=== PATIENT | male | born 1965 | race Two or more races ===

== ENCOUNTER 2016-11-18 18:18 | Emergency (ER) | payer OTHER ==
[2016-11-18 19:09] LABS: ABSOLUTE NEUTROPHIL COUNT 2.5 K/mm3 (1.8-7.7); BASO # 0.1 K/mm3 (0.0-0.2); BASO % 0.8 % (0.2-1.0); EOS # 0.2 (0.0-0.5); EOS % 2.7 % (0.9-2.9); HEMATOCRIT 44.6 % (32.0-52.0); HEMOGLOBIN 15.5 gm/l (14.0-18.0); IMM NEUT% 0.5 % (0-1); LYMPH # 3.1 (1.0-4.8); LYMPH % 48.6 % (15-45); MEAN CELL VOLUME 86.8 fl (80.0-94.0); MEAN CORPUSCULAR HEMOGLOBIN 30.2 pg (27.0-31.0); MEAN CORPUSCULAR HGB CONC 34.8 g/dl (33.0-37.0); MEAN PLATELET VOLUME 12.4 fl (7.4-10.4); MONO # 0.5 (0.0-0.8); MONO % 7.2 % (4-12); NEUT % 40.2 % (43-75); PLATELET COUNT 127 K/mm3 (130-400); RED CELL DISTRIBUTION WIDTH 12.4 % (11.5-14.5)
[2016-11-18 19:29] LABS: ALB/GLOB RATIO 1.4 (>1.0); ALBUMIN 4.3 gm/dL (3.5-5.7); CALCIUM 9.1 mg/dL (8.6-10.3)
--- NOTE | 2016-11-19 11:25 | US ---
ABDOMINAL-LIMITED COMPARISON: None HISTORY: Right upper quadrant pain. FINDINGS: Gall bladder: Contracted. No stones or sludge. Common hepatic duct: 3.1 mm. Common bile duct: 4.3 mm. IMPRESSION: 1. Contracted gallbladder because of recent meal. No gallstones or acute cholecystitis. No dilation of the bile ducts. Preliminary report by [facility] radiologist El Escudero MD 11/18/2016 at 21:04
== END 2016-11-18 18:19 | disposition home or self-care (01) ==
LOC: ED 18:18
DX: R10.9 Unspecified abdominal pain (principal); E11.9 Type 2 diabetes mellitus without complications; Z79.84 Long term (current) use of oral hypoglycemic drugs

== ENCOUNTER 2016-12-20 08:57 | Day surgery (SDC) | payer OTHER ==
[~2016-12-20 08:57] MED LIST: FENTANYL 250 MCG/5 ML AMP IV PRN; IV START KIT ONE; LACTATED RINGERS 0 ML ONE; LACTATED RINGERS 1,000 ML IV SCH; LIDOCAINE Viscous 2% 15 ML UDCUP PO PRN; MIDAZOLAM HCL 5 MG/5 ML VIAL IV PRN
[2016-12-20] MEDS ORDERED: SODIUM CHLORIDE 0.9% 1,000 ML ONE (09:10)
[2016-12-20] MEDS ORDERED: MIDAZOLAM HCL 5 MG/5 ML VIAL ONE (09:30)
[2016-12-20] MEDS ORDERED: LIDOCAINE Viscous 2% 15 ML UDCUP ONE (09:30)
[2016-12-20] MEDS ORDERED: FENTANYL 250 MCG/5 ML AMP ONE (09:30)
[2016-12-20] MEDS ORDERED: SODIUM CHLORIDE 0.9% 1,000 ML IV SCH (09:45)
[2016-12-20 15:00] LABS: HELICOBACTER PYLORII DETECTION NEGATIVE (NEGATIVE)
--- NOTE | 2016-12-25 10:45 | SURGPATH ---
[facility] [address] [place] [id number] Patient Name: DONNA LOPEZ MR#: [id number] : 1965 Gender: M Specimen #: [id number] Collected: 12/20/2016 Received: 12/22/2016 Reported: 12/25/2016 Submitting Phys: CHRIS ALVES Copy To Phys: [facility] - HIM Clinical History / Pre-Operative Diagnosis: GERD, screening colonoscopy, rule out; Giardia, celiac sprue, gastritis Specimen Source / Surgical Procedure Performed: #1 duodenal biopsy, #2 stomach antrum biopsy, #3 sigmoid polyp 15 cm Interpretation: 1, 2. DUODENUM, GASTRIC ANTRUM, BIOPSIES: - NO PATHOLOGIC DIAGNOSIS 3. SIGMOID COLON, POLYP AT 15 CM, BIOPSY: - INFLAMED HYPERPLASTIC POLYP Electronically Signed Out Ector Silver M.D. Gross Description: The specimen is received in three formalin filled containers, labeled with the patient's name. 1. The specimen is labeled "duodenum" and consists of two irregularly shaped fragment(s) of parr tissue aggregating to 0.5 x 0.3 x 0.2 cm. The specimen is entirely submitted in cassette 1A. 2. The specimen is labeled "stomach antrum" and consists of one irregularly shaped fragment(s) of parr tissue aggregating to 0.6 x 0.3 x 0.2 cm. The specimen is entirely submitted in cassette 2A. 3. The specimen is labeled "sigmoid polyp 15 cm" and consists of one pedunculated shaped fragment(s) of parr tissue aggregating to 1.4 x 1.2 x 0.7 cm, bisected. The specimen is entirely submitted in cassette 3A. NOE Turcios Microscopic Description: 1. Levels reveal small intestinal mucosa with a normal villous architecture. Ulceration, acute inflammation, granulomas, intraepithelial lymphocytosis, Giardia organisms, dysplasia and malignancy are not seen. 2. Levels reveal gastric mucosa with an unremarkable architecture and few chronic inflammatory cells in the lamina propria. Ulceration, acute inflammation, intestinal metaplasia, Helicobacter organisms, dysplasia and malignancy are not present. 3. Levels reveal polypoid colonic mucosa with hyperplastic glands associated with vascular congestion and inflammation. Dysplasia and malignancy are not seen. 1: 83497 2: [id number] 3: 28529 K63.5
== END 2016-12-20 11:31 | disposition home or self-care (01) ==
LOC: SDC 08:57
PROVIDERS: ATTEND Internal Medicine Gastroenterology
PROC: 0DB98ZX Excision of Duodenum, Via Natural or Artificial Opening Endoscopic, Diagnostic (ICD-10-PCS; principal; 2016-12-20)
PROC: 0DB68ZX Excision of Stomach, Via Natural or Artificial Opening Endoscopic, Diagnostic (ICD-10-PCS; 2016-12-20)
PROC: 0DBN8ZX Excision of Sigmoid Colon, Via Natural or Artificial Opening Endoscopic, Diagnostic (ICD-10-PCS; 2016-12-20)
DX: K29.70 Gastritis, unspecified, without bleeding (principal); K29.80 Duodenitis without bleeding; Z12.11 Encounter for screening for malignant neoplasm of colon; K63.5 Polyp of colon; E11.9 Type 2 diabetes mellitus without complications; Z79.84 Long term (current) use of oral hypoglycemic drugs
CPT/HCPCS: 43239; 45385; 87081; J3010; J2250; A9270; J7030